=== PATIENT | female | born 1935 | race Caucasian/White ===

== ENCOUNTER 2016-12-05 10:17 | Emergency (ER) | payer MEDICARE, BC ==
[2016-12-05] MEDS ORDERED: Acetaminophen TAB* 325 MG PO ONE (10:58)
[2016-12-05] MEDS ORDERED: Morphine INJ* 2 MG/ML 1 ML SYRINGE IV ONE ×2 (11:18→11:19)
[2016-12-05] MEDS ORDERED: Ondansetron INJ* 2 MG/ML VIAL IV ONE (11:19)
--- NOTE | 2016-12-05 13:13 | RAD ---
INDICATION: Left shoulder pain after a fall COMPARISON: None. TECHNIQUE: 4 views of the left shoulder were obtained. FINDINGS: There is displacement of the left humeral head inferiorly and anterior relative to the bony glenoid labrum. There is a displaced fracture of the lesser trochanter best depicted on the AP views of the shoulder. The remaining visualized bones are intact. IMPRESSION: AVULSION FRACTURE OF THE LEFT LESSER HUMERAL TROCHANTER AND LEFT GLENOHUMERAL DISLOCATION.
[2016-12-05] MEDS ORDERED: fentaNYL* 50 MCG/ML 2 ML VIAL (100 MCG VIAL) IV SLOW PU ONE (13:51)
[2016-12-05] MEDS ORDERED: Midazolam* 1 MG/ML 10 ML VIAL (10 MG) IV ONE (13:51)
[2016-12-05] MEDS ORDERED: Naloxone* 0.4 MG/ML 1 ML VIAL IV PUSH ONE (13:52)
[2016-12-05] MEDS ORDERED: Flumazenil* 0.1 MG/ML 5 ML MDV IV ONE (13:52)
--- NOTE | 2016-12-05 16:12 | RAD ---
INDICATION: Post left shoulder reduction COMPARISON: Left shoulder radiograph from same day at 1107 hours TECHNIQUE: 2 views of the left shoulder were obtained. FINDINGS: The left glenohumeral head appears to be dislocated inferiorly from the glenoid after reduction of the humeral shaft. IMPRESSION: FRACTURE THROUGH THE SURGICAL NECK OF THE LEFT HUMERUS WITH THE HUMERAL HEAD NOW DISPLACED INFERIORLY AND ROTATED APPROXIMATELY 180 DEGREES RELATIVE TO THE GLENOID LABRUM.
[2016-12-05 17:03] VITALS: BP 138/70
--- NOTE | 2016-12-05 18:40 | ED ---
I, Alfonso,Renzo, scribed for Will Concepcion MD on 12/05/16 at 1100 . Upper Extremity Pain - HPI Summary HPI Summary: This 81 y/o female presents to ED for left shoulder pain and left arm pain secondary to a mechanical fall this morning around 0900 AM. Pt tripped and fell forward. Negative neck pain, rib pain, head injury, or hip pain. Movement makes the pain worse. Pt is right handed. PMHx includes HTN, DM, and CABG x4. - History of Current Complaint Chief Complaint: EDExtremityUpper Stated Complaint: LT ARM PAIN Time Seen by Provider: 12/05/16 10:48 Hx Obtained From: Patient, Medical Records Mechanism Of Injury: Fall From A Standing Position Onset/Duration: Started Hours Ago, Traumatic, Still Present Timing: Constant Pain Location: Shoulder - left Character: Dull Aggravating Factor(s): Movement Alleviating Factor(s): Nothing Associated Signs & Symptoms: Positive: Negative. Negative: Neck Pain - Allergies/Home Medications Allergies/Adverse Reactions: Allergies Allergy/AdvReac Type Severity Reaction Status Date / Time Narcotics Allergy Nausea And Uncoded 12/05/16 10:29 Vomiting PMH/Surg Hx/FS Hx/Imm Hx Endocrine/Hematology History: Reports: Hx Diabetes Cardiovascular History: Reports: Hx Coronary Artery Disease - s/p CABG x4, Hx Hypertension Infectious Disease History: Denies: Traveled Outside the [place] in Last 30 Days - Family History Known Family History: Positive: Cardiac Disease, Hypertension, Diabetes - Social History Alcohol Use: None Substance Use Type: Reports: None Smoking Status (MU): Unknown if Ever Smoked Review of Systems Negative: Fever Positive: Other - Positive left shoulder pain and left arm pain. Negative hip pain or neck pain. Negative: Weakness All Other Systems Reviewed And Are Negative: Yes Physical Exam - Summary Physical Exam Summary: The patient is well-nourished in no acute distress and in no acute pain. The skin is warm and dry and skin color reflects adequate perfusion. Skin intact. HEENT: The head is normocephalic and atraumatic. The pupils are equal and reactive. The conjunctivae are clear and without drainage. Nares are patent and without drainage. Mouth reveals moist mucous membranes and the throat is without erythema and exudate. Neck is supple with full range of motion and non-tender. There are no carotid bruits. There is no neck vein distension. Respiratory: Chest is non-tender. Lungs are clear to auscultation and breath sounds are symmetrical and equal. Cardiovascular: Hear is regular rate and rhythm. There is no murmur or rub auscultated. There is no peripheral edema and pulses are symmetrical and equal. Abdomen: The abdomen is soft and non-tender. There are normal bowel sounds heard in all four quadrants and there is no organomegaly palpated. Musculoskeletal: No hip tenderness. No neck tenderness. There is good capillary refill. There is no peripheral edema or calf tenderness elicited. Positive marked tenderness at left proximal humerus. Left elbow tenderness. No or minimal tenderness to left wrist. Neurovascularly intact at LUE. Neurological: Patient is alert and oriented to person, place and time. The patient has symmetrical motor strength in all four extremities. Cranial nerves are grossly intact. Deep tendon reflexes are symmetrical and equal in all four extremities. Psychiatric: The patient has an appropriate affect and does not exhibit any anxiety or depression. Triage Information Reviewed: Yes Vital Signs On Initial Exam: Initial Vitals Temp Pulse Resp BP Pulse Ox 99.3 F 76 20 142/69 96 12/05/16 10:25 12/05/16 10:25 12/05/16 10:25 12/05/16 10:25 12/05/16 10:25 Vital Signs Reviewed: Yes Procedures - Joint Reduction Joint Reduction Site: shoulder (L) Conscious Sedation: Yes - at 1435 with FLORESITA Haynes as witness Reduction Attempts: 6 Pre-Procedure NV Exam: Yes Post Joint Reduction Film: joint reduced Diagnostics - Vital Signs Vital Signs Temp Pulse Resp BP Pulse Ox 12/05/16 10:25 99.3 F 76 20 142/69 96 - Laboratory Lab Statement: Any lab studies that have been ordered have been reviewed, and results considered in the medical decision making process. - Radiology Left Shoulder, pre-reduction Xray Interpretation: Positive (See Comments) - AVULSION FRACTURE OF THE LEFT LESSER HUMERAL TROCHANTER AND LEFT GLENOHUMERAL DISLOCATION. Radiology Interpretation Completed By: Radiologist Left shoulder, Post reduction Xray Interpretation: Positive (See Comments) - FRACTURE THROUGH THE SURGICAL NECK OF THE LEFT HUMERUS WITH THE HUMERAL HEAD NOW DISPLACED INFERIORLY AND ROTATED APPROXIMATELY 180 DEGREES RELATIVE TO THE GLENOID LABRUM. -- also evaluated by Dr. Mayers in ED room. Radiology Interpretation Completed By: Radiologist Re-Evaluation - Re-Evaluation First Eval Re-Evaluation Time: 14:32 Comment: MD in room to perform joint reduction at LUE shoulder. Conscious sedation performed. Pt is noted with obvious deformity at proximal humerus of LUE, which is anterior and inferior to glenoid. Neurovascularly intact. Pt is NOT noted with left elbow tenderness. Second Eval Re-Evaluation Time: 16:11 Comment: MD in room to update pt on post-reduction left shoulder X-ray. Plan of care involving discharge and outpatient f/u is discussed with pt and present at bedside. No crepitus. No deformity. Pt is tendner at elbow but is currently refusing X-ray, and states that she feels good enough to go home. Pt does not want pain medication. Course/Dx - Course Assessment/Plan: This 81 y/o female presents to ED for left shoulder pain and left arm pain secondary to a mechanical fall this morning 0900 AM during which pt slipped and fell forward from standing position. Negative hip pain, neck pain , or head injury. Upon examination pt is noted with marked tenderness at left proximal humerus. She had trouble tolerating examination, and pain medication is ordered. Upon re-eval before consious sedation, pt is noted with anterior/ inferior deformity to left glenoid and was is not tender at left elbow. 75 mcg of Fentanyl and 10 mg of versed was given for conscious sedation. After conscious sedation at 1435 with FLORESITA Haynes as witnessed, reduction attempts x6 were made using external rotation and extension and [id number]. Reduction was successful as confirmed by post-reduction X-ray. Pt will be sent home with shoulder immobilizer with outpatient f/u with Dr. Mayers. Pt declined pain medication. pt. reduction xray revealed satisfactory reduction of humerous in glenoid fossa; however, the humeral head was avulsed and was located inferiorly and anteriorly to humeral shaft. there was s surgical neck fracture. - Diagnoses Differential Diagnosis/HQI/PQRI: Positive: Fracture (Closed), Other - dislocation Provider Diagnoses: Dislocation of left shoulder joint, conscious sedation, fracture and dislocation of humers Discharge - Discharge Plan Condition: Stable Disposition: HOME Patient Education Materials: Shoulder Dislocation (ED), Proximal Humerus Fracture (ED) Referrals: Roxana Shepherd PA [Primary Care Provider] - 2 Days Fede Mayers MD [Medical Doctor] - 2 Days The documentation as recorded by the scribeAlfonso Soohyun accurately reflects the service I personally performed and the decisions made by me, Will Concepcion MD.
== END 2016-12-05 17:00 | disposition home or self-care (01) ==
LOC: ED 10:17
DX: S43.035A Inferior dislocation of left humerus, initial encounter (principal); S42.211A Unspecified displaced fracture of surgical neck of right humerus, initial encounter for closed fracture; W01.0XXA Fall on same level from slipping, tripping and stumbling without subsequent striking against object, initial encounter; Y92.9 Unspecified place or not applicable; E11.9 Type 2 diabetes mellitus without complications; I25.10 Atherosclerotic heart disease of native coronary artery without angina pectoris; I10 Essential (primary) hypertension; Z95.1 Presence of aortocoronary bypass graft
CPT/HCPCS: 23675; 96374; 96375; 99283; A9270-GY; J2250; J2270; J2310; J2405; J3010

== ENCOUNTER 2017-11-05 17:55 | Emergency (ER) | payer MEDICARE, BC ==
--- NOTE | 2017-11-05 17:56 | UC ---
Skin Complaint HPI - HPI Summary HPI Summary: 81 yo female presents with cat bite to right hand x2. She tells me that 5 days ago she was bitten by her cat on her right hand. 3 days ago was bitten again. Both times pt was petting her cat as usual and the cat got angry, bit her and ran away. Pt admits the cat is quite old. Here today with increased redness and swelling to right hand. Pt has been applying triple anbx ointment daily to the areas and soaking in warm salt water. Denies fever, chills, or decreased ROM - History of Current Complaint Hx Obtained From: Patient Onset/Duration: Sudden Onset Onset Severity: Mild Current Severity: Mild Pain Intensity: 3 Pain Scale Used: 0-10 Numeric <Justus Milian - Last Filed: 11/05/17 18:28> - HPI Summary HPI Summary: I called her today, she is feeling better. I confirmed her tetanus immunization status and she confirmed that her last shot was within 2 years, she did not remember the date. <Basilia Morocho - Last Filed: 11/07/17 16:58> - History of Current Complaint Time Seen by Provider: 11/05/17 17:56 Stated Complaint: CAT BITE - Allergy/Home Medications Allergies/Adverse Reactions: Allergies Allergy/AdvReac Type Severity Reaction Status Date / Time Narcotics AdvReac Nausea And Uncoded 11/05/17 18:06 Vomiting Home Medications: Home Medications Aspirin 81 mg CHEW TAB* [Aspirin Low Dose TAB*] 81 mg PO DAILY 11/05/17 [ History Confirmed 11/05/17] Giovanny/D3/Mag11/Zinc/Mental Health Program Manager/Romario/Bor [Caltrate 600+D Plus Tablet] 1 tab PO DAILY 11/05 [History Confirmed 11/05/17] L.acidoph,Paracasei, B.lactis [Probiotic] 1 tab PO DAILY 11/05/17 [History Confirmed 11/05/17] Lansoprazole SOLUTAB* [Prevacid SOLUTAB*] 15 mg PO DAILY 11/05/17 [History Confirmed 11/05/17] Lisinopril TAB* [Prinivil TAB*] 20 mg PO DAILY 11/05/17 [History Confirmed 11/05] Metoprolol Tartrate TAB* [Lopressor TAB*] 100 mg PO BID 11/05/17 [History Confirmed 11/05/17] Rosuvastatin Calcium [Crestor] 10 mg PO DAILY 11/05/17 [History Confirmed ] Ursodiol CAP* [Actigall CAP 300 MG*] 300 mg PO DAILY 11/05/17 [History Confirmed 11/05/17] Warfarin TAB(*) [Coumadin TAB(*)] 2 mg PO 1700 11/05/17 [History Confirmed 11/05] Review of Systems Constitutional: Negative Skin: Other - Cat bite Respiratory: Negative Cardiovascular: Negative Neurovascular: Negative Neurological: Negative Psychological: Negative All Other Systems Reviewed And Are Negative: Yes <Justus Milian Last Filed: 11/05/17 18:28> PMH/Surg Hx/FS Hx/Imm Hx Cardiovascular History: Cardiac Disease, Hypertension, Atrial Fibrillation - Surgical History Surgical History: None - Family History Known Family History: Positive: Cardiac Disease, Hypertension, Diabetes - Social History Occupation: Retired Lives: With Family Alcohol Use: None Substance Use Type: None Smoking Status (MU): Former Smoker <Justus Milian Last Filed: 11/05/17 18:28> Physical Exam - Summary Physical Exam Summary: GENERAL: NAD. WDWN. No pain distress. SKIN: Right hand: Puncture wound to dorsal aspect overlying the 2nd MC. A second puncture wound inferior to this first one. Very mild edema. Mild TTP. No streaking, bleeding, or drainage. NECK: Supple. Nontender. No lymphadenopathy. CHEST: No accessory muscle use. Breathing comfortably and in no distress. CV: Pulses intact. NEURO: Alert. PSYCH: Age appropriate behavior. Triage Information Reviewed: Yes Vital Signs: Vital Signs: Temp Pulse Resp BP Pulse Ox 98.4 F 85 18 128/80 97 11/05/17 18:09 11/05/17 18:09 11/05/17 18:09 11/05/17 18:09 11/05/17 18:09 <Justus Milian - Last Filed: 11/05/17 18:28> Vital Signs: Initial Vital Signs Temp 98.4 F 11/05/17 18:09 Pulse 85 11/05/17 18:09 Resp 18 11/05/17 18:09 BP 128/80 11/05/17 18:09 Pulse Ox 97 11/05/17 18:09 <Basilia Morocho - Last Filed: 11/07/17 16:58> Course/Dx - Course Course Of Treatment: Cat bite right hand. Augmentin. - Diagnoses Provider Diagnoses: Cat bite right hand <Justus Milian - Last Filed: 11/05/17 18:28> Discharge - Sign-Out/Discharge Documenting (check all that apply): Discharge/Admit/Transfer - Billing Disposition and Condition Condition: STABLE Disposition: Home <Justus Milian - Last Filed: 11/05/17 18:28> - Billing Disposition and Condition Condition: STABLE Disposition: Home <Basilia Morocho - Last Filed: 11/07/17 16:58> - Discharge Plan Condition: Stable Disposition: HOME Prescriptions: Amoxicillin/Clavulanate TAB* [Augmentin TAB 875*] 875 mg PO BID #20 tab Patient Education Materials: Animal Bite (ED) Referrals: Roxana Shepherd PA [Primary Care Provider] - Additional Instructions: If you develop a fever, shortness of breath, chest pain, new or worsening symptoms - please call your PCP or go to the ED. Your blood pressure was high at todays visit. Please see your primary provider within 4 weeks for recheck and re-evaluation.
[2017-11-05 18:17] VITALS: BP 128/80
[2017-11-05] MEDS ORDERED: Amoxicillin/Clavulanate TAB* 875 MG PO ONE (18:22)
== END 2017-11-05 18:40 | disposition home or self-care (01) ==
LOC: UCEAST 17:55
DX: S61.451A Open bite of right hand, initial encounter (principal); Z88.5 Allergy status to narcotic agent; I48.91 Unspecified atrial fibrillation; I10 Essential (primary) hypertension; Z79.899 Other long term (current) drug therapy; Z79.4 Long term (current) use of insulin; W55.01XA Bitten by cat, initial encounter; Y92.9 Unspecified place or not applicable; Z87.891 Personal history of nicotine dependence
CPT/HCPCS: 99212; A9270-GY; G0463